=== PATIENT | female | born 1975 | race Caucasian/White ===

== ENCOUNTER 2018-02-26 22:46 | Emergency (ER) | payer MEDICAID ==
--- NOTE | 2018-02-26 23:47 | ER Document Report ---
ED General - General Chief Complaint: Passed Out Prior to Arrival Stated Complaint: PASSED OUT Time Seen by Provider: 02/26/18 23:00 Notes: Patient is a 42-year-old female presents with complaint of a syncopal episode. The initial story was the patient was sitting on a porch doing nothing when suddenly she started staring off in space. She was in will be confused for several minutes and eventually came back to normal. There is no convulsions during this episode. This never happened before. She denies any recent fevers or infections. She denies alcohol use. She denies any focal weakness or numbness. She denies any chest pain. She denies any headache. She denied any palpitations. After left the room however the buffer copper reports that mentioned that the patient actually had been smoking marijuana at the time that this happened. I went back and asked patient again about this she said that she did think it was related because she had finished smoking the marijuana just prior to this happening. She said episode happened 10-20 minutes after smoking the marijuana that this episode happened. - Related Data Allergies/Adverse Reactions: No Known Allergies Allergy (Unverified 02/26/18 23:15) Past Medical History - Social History Smoking Status: Current Some Day Smoker Frequency of alcohol use: None Drug Abuse: Marijuana Family History: Reviewed & Not Pertinent Review of Systems - Review of Systems Notes: My Normal Review Basic REVIEW OF SYSTEMS: CONSTITUTIONAL : Denies fever, chills, or sweats. Denies recent illness. EENT: Denies eye, ear, throat, or mouth pain or symptoms. Denies nasal or sinus congestion. CARDIOVASCULAR: Denies chest pain. RESPIRATORY: Denies cough, cold, or chest congestion. Denies shortness of breath, difficulty breathing, or wheezing. GASTROINTESTINAL: Denies abdominal pain. Denies nausea, vomiting, or diarrhea. MUSCULOSKELETAL: Denies neck or back pain or joint pain or swelling. SKIN: Denies rash or skin lesions. NEUROLOGICAL: syncopal episode. Denies headache. Denies weakness or paralysis or loss of use of either side. Denies problems with gait or speech. Denies sensory or motor loss. ALL OTHER SYSTEMS REVIEWED AND NEGATIVE. Physical Exam - Vital signs Vitals: Resp Pulse Ox 24 H 97 02/26/18 22:53 02/26/18 22:53 - Notes Notes: General Appearance: Well nourished, alert, cooperative, no acute distress, no obvious discomfort. Well appearing. Vitals: reviewed, See vital signs table. Head: no swelling or tenderness to the head Eyes: PERRL, EOMI, Conjuctiva clear Mouth: No decreasd moisture Neck: No tenderness to palpation of cervical spine. No step-offs or deformities. Lungs: No wheezing, No rales, No rhonci, No accessory muscle use, good air exchange bilaterally. Heart: Normal rate, Regular rythm, No murmur, no rub Abdomen: Normal BS, soft, No rigidity, No abdominal tenderness, No guarding, no rebound, no abdominal masses, no organomegaly Extremities: strength 5/5 in all extremities, good pulses in all extremities, no swelling or tenderness in the extremities, no edema. Skin: warm, dry, appropriate color, no rash Neuro: speech clear, oriented x 3, normal affect, responds appropriately to questions. Cranial nerves II through XII are intact. Distal sensation intact. Patient moves all extremities without difficulty. Normal coronation of movements of extremities. Course - Re-evaluation Re-evalutation: 02/27/18 03:37 I suspect the patient's syncopal episode was most likely related to the marijuana. Patient is pretty convinced that is not related to marijuana. I informed her the only thing that likely causes would be seizure based on the fact that she had an episode of where she was staring off in space and then was confused afterwards. Informed I think is much less likely seizure and I think his marijuana however the patient again is convinced it is not related to marijuana. I will have her follow-up with neurology for reevaluation. I encouraged her return to ER immediately if she has recurrence of her symptoms, any headache, any chest pain, she feels unwell. I informed her not to drive until cleared by neurology. Thank encourage her to stay away from any illicit drugs including marijuana. Patient agrees with plan and will be discharged home. Dictation of this chart was performed using voice recognition software; therefore, there may be some unintended grammatical errors. - Vital Signs Vital signs: Temp Pulse Resp BP Pulse Ox 63 18 99/63 L 98 02/27/18 02:48 02/27/18 02:48 02/27/18 02:48 02/27/18 02:48 - Laboratory Result Diagrams: 02/27/18 00:43 02/27/18 00:02 Laboratory results interpreted by me: 02/27/18 00:43 WBC 13.9 H Hgb 11.7 L Hct 35.5 L MCH 26.9 L RDW 15.9 H Absolute Neutrophils 10.8 H - EKG Interpretation by Me Additional EKG results interpreted by me: 02/26/18 23:44 EKG shows a rate of [address]. No [address] segment elevation or depression. No ischemic T-wave inversions. PA interval, QRS duration, QTc intervals are within normal range. No old EKG available for comparison. Discharge - Discharge Clinical Impression: Syncope Qualifiers: Syncope type: unspecified Qualified Code(s): R55 - Syncope and collapse Condition: Good Disposition: HOME, SELF-CARE Additional Instructions: PLease avoid smoking Marijuana or any drugs. I suspect your passing out episode today could be related to the marijuana but we cannot fully rule out seizure. Please follow up with the neurologist, Dr. Mccarthy or Dr. Barajas, for reevaluation to rule out any underlying seizure disorder. Do not drive until cleared by a neurologist. Return to the ER if you have recurrence of symptoms Referrals: MEHUL MCCARTHY MD [EMERITUS] - 03/01/18 MARCELINO BARAJAS MD [NO LOCAL MD] - 03/01/18
--- NOTE | 2018-02-26 23:58 | RADIOLOGY REPORT (SQ) ---
EXAM DESCRIPTION: CT HEAD WITHOUT IV CONTRAST COMPLETED DATE/TME: 02/26/2018 23:07 CLINICAL HISTORY: 42 years Female, syncope COMPARISON: None. TECHNIQUE: No contrast. Coronal and sagittal reformat. This exam was performed according to our departmental dose-optimization program, which includes automated exposure control, adjustment of the mA and/or kV according to patient size and/or use of iterative reconstruction technique. FINDINGS: No hemorrhage or infarct. No mass, mass effect, or midline shift. Brain and extra-axial structures appear intact. IMPRESSION: Normal CT of the head.
[2018-02-27 00:47] LABS: ALANINE AMINOTRANSFERASE 34 U/L (9-52); ALBUMIN 3.6 g/dL (3.5-5.0); ALKALINE PHOSPHATASE 87 U/L (38-126); ANION GAP 9 (5-19); ASPARTATE AMINO TRANSFERASE 22 U/L (14-36); BILIRUBIN,DIRECT 0.3 mg/dL (0.0-0.4); BILIRUBIN,TOTAL 0.4 mg/dL (0.2-1.3); BLOOD UREA NITROGEN 9 mg/dL (7-20); CALCIUM 8.8 mg/dL (8.4-10.2); CARBON DIOXIDE 25 mmol/L (22-30); CHLORIDE 107 mmol/L (98-107); GLUCOSE 92 mg/dL (75-110); POTASSIUM 3.7 mmol/L (3.6-5.0); SODIUM 140.8 mmol/L (137-145); TOTAL PROTEIN 6.8 g/dL (6.3-8.2)
[2018-02-27 00:51] LABS: ABSOLUTE BASOPHILS # (AUTO) 0.1 10^3/uL (0.0-0.2); ABSOLUTE EOSINOPHILS # (AUTO) 0.1 10^3/uL (0.0-0.6); ABSOLUTE LYMPHOCYTES (AUTO) 2.2 10^3/uL (0.5-4.7); ABSOLUTE MONOCYTES (AUTO) 0.8 10^3/uL (0.1-1.4); ABSOLUTE NEUT (AUTO) 10.8 10^3/uL (1.7-8.2); EOSINOPHILS % (AUTO) 0.6 % (0-6); HEMATOCRIT 35.5 % (36.0-47.0); HEMOGLOBIN 11.7 g/dL (12.0-15.5); LYMPHOCYTES % (AUTO) 15.8 % (13-45); MEAN CORPUSCULAR HEMOGLOBIN 26.9 pg (27.0-33.4); MEAN CORPUSCULAR HGB CONC 33.1 g/dL (32.0-36.0); MEAN CORPUSCULAR VOLUME 81 fl (80-97); MONOCYTES % (AUTO) 5.4 % (3-13); PLATELET COUNT 366 10^3/uL (150-450); RED BLOOD COUNT 4.36 10^6/uL (3.72-5.28); RED CELL DISTRIBUTION WIDTH 15.9 % (11.5-14.0); SEGMENTED NEUTROPHILS % (AUTO) 77.2 % (42-78); TOTAL CELLS COUNTED % (AUTO) 100 %; WHITE BLOOD COUNT 13.9 10^3/uL (4.0-10.5)
[2018-02-27 02:49] VITALS: BP 99/63
--- NOTE | 2018-02-27 10:31 | EKG REPORT ---
SEVERITY:- ABNORMAL ECG - SINUS RHYTHM LOW VOLTAGE THROUGHOUT : Confirmed by: Mir Greene MD 27-Feb-2018 10:30:39
== END 2018-02-27 02:46 | disposition home or self-care (01) ==
LOC: ER 22:46
DX: R55 Syncope and collapse (principal); F12.10 Cannabis abuse, uncomplicated; F17.200 Nicotine dependence, unspecified, uncomplicated
CPT/HCPCS: 36415; 70450; 80053; 83735; 84484; 85025; 93005; 93010; 99285

== ENCOUNTER 2018-09-02 11:24 | Day surgery (SDC) | payer MEDICAID ==
[2018-09-02 12:47] VITALS: BP 118/62
== END 2018-09-02 15:00 | disposition home or self-care (01) ==
LOC: OROUT 11:24
PROVIDERS: ATTEND Surgery
DX: R58 Hemorrhage, not elsewhere classified (principal); Z53.9 Procedure and treatment not carried out, unspecified reason
CPT/HCPCS: 81025; 82962